=== PATIENT | female | born 1990 | race Caucasian/White ===

== ENCOUNTER → 2023-10-30 10:19 | Outpatient (CLI) | payer OTHER, SELFPAY ==
--- NOTE | 2023-10-30 10:20 | DI.US.S_ITS ---
PROCEDURE: US OB <= 14 WEEKS FETUS INDICATIONS: Dating and viability OUTSIDE/PRIOR DATING DATA: Last menstrual period (LMP): 08/22/2023. LMP-based estimated date of delivery (GARRETT): 05/28/2024. First dating scan (date and location): 10/30/2023. Estimated date of delivery (GARRETT) from first dating scan: 05/27/2024. The calculations are made using the working GARRETT of 05/28/2024. TECHNIQUE: Real-time scanning was performed of the fetus and maternal pelvic organs, with image documentation. COMPARISON: None. FINDINGS: Embryo: Bluebell-rump length 3.1 cm, 10 weeks 0 days Heart rate: 169 Maternal organs: Ovaries not seen. IMPRESSION: Living 1st trimester intrauterine with crown-rump length and heartbeat measuring 10 weeks 0 days. We strive to produce accurate, complete, and clear reports of imaging services. To assist us in improving patient care, this report was composed using standard report templates and voice recognition software. Therefore, it may contain abnormal punctuation, insertions and/or omissions. Occasional wrong-word or sound-alike substitutions may occur. Though we review the report and make efforts to correct it, we do recommend that the report be read carefully in proper context to recognize any text inaccuracies. Dictated by: Marin Tijerina M.D. on 10/30/2023 at 17:02 Approved by: Marin Tijerina M.D. on 10/30/2023 at 17:04
== END ==
LOC: US 10:19
PROVIDERS: Referring Provider Obstetrics & Gynecology; Visit Provider Obstetrics & Gynecology
DX: Z34.81 Encounter for supervision of other normal pregnancy, first trimester (principal); Z3A.10 10 weeks gestation of pregnancy
CPT/HCPCS: 76801

== ENCOUNTER → 2023-11-20 10:55 | Outpatient (CLI) | payer OTHER, SELFPAY ==
[2023-11-20 12:18] LABS: Add Manual Diff / Slide Review NO; Basophils Absolute Auto 0 /uL (0-100); Basophils Percent Auto 0.3 % (0-2); Eosinophils Absolute Auto 400 /uL (0-450); Eosinophils Percent Auto 4.5 % (2-4); Hematocrit 34.7 % (36-46); Hemoglobin 12.1 g/dL (12.0-16.0); Lymphocytes Absolute Auto 2700 /uL (1100-4500); Lymphocytes Percent Auto 33.2 % (25-40); Mean Corpuscular HGB Conc 34.9 % (30-36); Mean Corpuscular Hemoglobin 29.2 PG (26-34); Mean Corpuscular Volume 83.6 fL (80-100); Monocytes Absolute Auto 500 /uL (0-900); Monocytes Percent Auto 6.3 % (3-14); Neutrophils Absolute Auto 4600 /uL (1500-7000); Neutrophils Percent Auto 55.7 % (50-75); Platelet Count 282 X10^3/uL (150-400); Red Blood Cell Count 4.15 X10^6/uL (4.0-5.2); Red Cell Distribution Width 13.3 % (11.6-14.8); White Blood Cell Count 8.2 X10^3/uL (4.5-11.0)
[2023-11-20 12:41] LABS: Natera Collection Specimen Collected
[2023-11-20 12:56] LABS: Alanine Aminotransferase 14 IU/L (<35); Aspartate Aminotransferase 18 IU/L (14-36); Blood Urea Nitrogen 8 mg/dL (7-17); Estimated Glomerular Filt Rate > 60 mL/min (>60); Uric Acid 1.5 mg/dL (2.5-6.2)
[2023-11-20 14:43] LABS: TSH w/ Reflex to FT4 0.98 uIU/mL (0.47-4.68)
[2023-11-20 22:16] LABS: Urine N gonorrhoeae NOT DETECTED
[2023-11-20 22:21] LABS: Urine Chlamydia NOT DETECTED
[2023-11-21 06:14] LABS: RPR Screen Non Reactive (Non Reactive)
[2023-11-21 10:16] LABS: Varicella IgG Antibody 204 index (Immune >165)
[2023-11-21 22:47] LABS: Hepatitis B Surface Antigen NEGATIVE s/c (NEGATIVE); Rubella Antibody IgG 11.2 IU/mL (>15)
[2023-11-21 22:58] LABS: HIV 1 & 2 Ab/Ag 4th Gen Combo NEGATIVE (NEGATIVE); Hep C Virus Ab w/Reflex Quant NEGATIVE s/c (NEGATIVE)
[2023-12-05 08:04] LABS: Misc. to WA State Lab SEE SCANNED REPORTS
== END ==
PROVIDERS: Referring Provider Obstetrics & Gynecology; Visit Provider Obstetrics & Gynecology
DX: O13.9 Gestational [pregnancy-induced] hypertension without significant proteinuria, unspecified trimester (principal); R68.89 Other general symptoms and signs; O99.619 Diseases of the digestive system complicating pregnancy, unspecified trimester; K59.00 Constipation, unspecified; Z3A.12 12 weeks gestation of pregnancy; Z11.3 Encounter for screening for infections with a predominantly sexual mode of transmission
CPT/HCPCS: 36415; 80055; 82565; 84443; 84450; 84460; 84520; 84550; 86787; 86803; 86850; 86900; 86901; 87086; 87389; 87491; 87591

== ENCOUNTER → 2023-12-20 09:22 | Outpatient (CLI) | payer OTHER, SELFPAY | PROVIDERS: Referring Provider Obstetrics & Gynecology; Visit Provider Obstetrics & Gynecology | DX: Z34.82 Encounter for supervision of other normal pregnancy, second trimester (principal); Z3A.16 16 weeks gestation of pregnancy | CPT/HCPCS: 36415; 82105 ==

== ENCOUNTER → 2024-01-07 10:07 | Outpatient (CLI) | payer OTHER, SELFPAY ==
--- NOTE | 2024-01-07 10:08 | DI.US.S_ITS ---
PROCEDURE: US OB >= 14 WEEKS FETUS INDICATIONS: anatomy Scan OUTSIDE/PRIOR DATING DATA: Last menstrual period (LMP): 08/22/2023. LMP-based estimated date of delivery (GARRETT): 05/28/2024. (Working GARRETT) First dating scan (date and location): 10/30/2023. Estimated date of delivery (GARRETT) from first dating scan: 05/27/2024. TECHNIQUE: Real-time scanning was performed of the fetus, with image documentation and biometric measurements. COMPARISON: [facility], OB <= 14 WEEKS FETUS, 10/30/2023, 10:40. FINDINGS: General: A single living intrauterine gestation is present. Presentation: Variable. Placenta: Placental position is posterior , without previa. Amniotic fluid index: 11 cm, normal range is 5-24 cm. Single deepest vertical pocket is 3.8 cm. heart rate: 143 beats per minute. Maternal cervical canal: 3.6 cm long. Normal lower limit is 2.5 cm. biometrics: Biparietal diameter: 4.6 centimeters, 19 weeks and 6 days Head circumference: 17.5 centimeters, 20 weeks Abdominal circumference: 16.4 centimeters, 21 weeks and 3 days Femur length: 3.3 centimeters, 20 weeks and 1 day Clinically estimated gestational age: 19 weeks and 5 days Composite gestational age from present scan: 20 weeks and 3 days Estimated weight and percentile: 374 grams, 94th percentile Anatomic survey: Neuro: Ventricles are non-dilated at less than 10 mm. Cisterna magna is normal at 3-11 mm. Cerebellum is normal in size and morphology. Bilateral choroid plexus cysts are present measuring 4-5 millimeters. Nuchal skin fold: Normal at less than 6 mm between 14-21 weeks gestational age. Face: Nose and lips, facial profile are normal. Spine: No evidence for spina bifida. Heart: 4-chambered heart is present. LVOT is unremarkable. The RVOT is probably within normal limits, but not seen within 1 imaging plane due to positioning. Diaphragm: Diaphragm is intact. Stomach: Left-sided stomach is present. Kidneys: No hydronephrosis. Normal is less than 5 mm in 2nd trimester, less than 7 mm in 3rd trimester. Cord: 3-vessel cord has orthotopic insertion. Bladder: Normal in size. Extremities: All 4 extremities identified. IMPRESSION: The RVOT is not seen within 1 imaging plane due to positioning, but probably within normal limits. Choroid plexus cysts are present, nonspecific in the absence of other significant abnormalities. Consider correlation with maternal risk factors to determine risk for aneuploidy. EFW is at the 94th percentile, at the upper limit of normal. Normal RICARDO. Consider short interval follow-up to reassess the above findings. Dictated by: Ren French M.D. on 01/07/2024 at 12:11 Approved by: Ren French M.D. on 01/07/2024 at 12:17
== END ==
LOC: US 10:08
PROVIDERS: Referring Provider Obstetrics & Gynecology; Visit Provider Obstetrics & Gynecology
DX: Z34.82 Encounter for supervision of other normal pregnancy, second trimester (principal); Z3A.20 20 weeks gestation of pregnancy
CPT/HCPCS: 76811

== ENCOUNTER → 2024-03-06 08:28 | Outpatient (CLI) | payer OTHER, SELFPAY ==
[2024-03-06 10:41] LABS: Hematocrit 35.3 % (36-46); Hemoglobin 12.3 g/dL (12.0-16.0)
[2024-03-06 11:18] LABS: GTT (PREG) 1 Hour PP 50gm Dose 151 mg/dL (76-139)
== END ==
PROVIDERS: Referring Provider Obstetrics & Gynecology; Visit Provider Obstetrics & Gynecology
DX: Z34.82 Encounter for supervision of other normal pregnancy, second trimester (principal); Z3A.26 26 weeks gestation of pregnancy
CPT/HCPCS: 36415; 82950; 85014; 85018

== ENCOUNTER → 2024-03-23 07:50 | Outpatient (CLI) | payer OTHER, SELFPAY ==
[2024-03-23 10:09] LABS: Glucose 1 Hour Gest 152 mg/dL (76-180)
[2024-03-23 10:16] LABS: Glucose Fasting Gestational 79 mg/dL (76-95)
[2024-03-23 11:04] LABS: Glucose Tol Interp,Gestational INTERPRETATION
[2024-03-23 11:07] LABS: Glucose 2 Hour Gest 155 mg/dL (76-155)
[2024-03-23 12:33] LABS: Glucose 3 Hour Gest 119 mg/dL (76-140)
== END ==
PROVIDERS: Referring Provider Obstetrics & Gynecology; Visit Provider Obstetrics & Gynecology
DX: O99.810 Abnormal glucose complicating pregnancy (principal)
CPT/HCPCS: 36415; 82951; 82952

== ENCOUNTER → 2024-04-06 08:52 | Outpatient (CLI) | payer OTHER, SELFPAY ==
--- NOTE | 2024-04-06 08:53 | DI.US.S_ITS ---
PROCEDURE: US OB FOLLOW UP INDICATIONS: GROWTH/BODERLINE GDM/CHOROID PLEXUS CYST OUTSIDE/PRIOR DATING DATA: Last menstrual period (LMP): 08/22/2023. LMP-based estimated date of delivery (GARRETT): 05/28/2024. First dating scan (date and location): 10/30/2023. Estimated date of delivery (GARRETT) from first dating scan: 05/27/2024. The calculations are made using the clinical GARRETT of 05/28/2024. TECHNIQUE: Real-time scanning was performed of the fetus, with image documentation and biometric measurements. Endovaginal scanning: Not performed COMPARISON: [facility], , OB >= 14 WEEKS FETUS, 01/07/2024, 10:16. FINDINGS: General: A single living intrauterine gestation is present. Presentation: Vertex. Placenta: Placental position is fundal , without previa. Amniotic fluid index: 11.4 cm, normal range is 5-24 cm. Single deepest vertical pocket is 3.5 cm. heart rate: 123 beats per minute. Maternal cervical canal: 3.5 cm long. Normal lower limit is 2.5 cm. biometrics: Biparietal diameter: 8.4 cm, 33 weeks 5 days Head circumference: 30.4 cm, 33 weeks 6 days Abdominal circumference: 29.4 cm, 33 weeks 3 days Femur length: 6.2 cm, 32 weeks 1 day Clinically estimated gestational age: 32 weeks 4 days Composite gestational age from present scan: 33 weeks 2 days Estimated weight and percentile: 2121 g, 57% Other: Right ventricular outflow tract is within normal limits. Choroid plexus are not seen which may be secondary to advance age and positioning. IMPRESSION: 1. Single live intrauterine consistent with 33 weeks and 2 days. 2. Right ventricular outflow tract is normal. 3. Choroid plexus cysts are not seen which may be secondary to advanced age and positioning. We strive to produce accurate, complete, and clear reports of imaging services. To assist us in improving patient care, this report was composed using standard report templates and voice recognition software. Therefore, it may contain abnormal punctuation, insertions and/or omissions. Occasional wrong-word or sound-alike substitutions may occur. Though we review the report and make efforts to correct it, we do recommend that the report be read carefully in proper context to recognize any text inaccuracies. Dictated by: Josue Arroyo M.D. on 04/06/2024 at 14:22 Approved by: Josue Arroyo M.D. on 04/06/2024 at 14:25
== END ==
PROVIDERS: Referring Provider Obstetrics & Gynecology; Visit Provider Obstetrics & Gynecology
DX: O35.03X0 Maternal care for (suspected) central nervous system malformation or damage in fetus, choroid plexus cysts, not applicable or unspecified (principal); Z3A.33 33 weeks gestation of pregnancy
CPT/HCPCS: 76816

== ENCOUNTER → 2024-05-05 10:44 | Outpatient (CLI) | payer OTHER, SELFPAY ==
[2024-05-06 10:06] LABS: Strep Grp B PCR POS for Grp B Strep
== END ==
PROVIDERS: Visit Provider Obstetrics & Gynecology
DX: Z36.85 Encounter for antenatal screening for Streptococcus B (principal)
CPT/HCPCS: 87653

== ENCOUNTER 2024-05-12 10:45 | Outpatient (CLI) | payer OTHER, SELFPAY | END 2024-05-12 11:40 | disposition home or self-care (01) | LOC: LABOR 11:01 → OB 05-15 06:14 | PROVIDERS: Referring Provider Obstetrics & Gynecology; Visit Provider Obstetrics & Gynecology | DX: O36.8130 Decreased fetal movements, third trimester, not applicable or unspecified (principal); Z3A.37 37 weeks gestation of pregnancy | CPT/HCPCS: 59025; G0378; G0379 ==

== ENCOUNTER 2024-05-22 05:55 | Inpatient (IN) | payer OTHER, SELFPAY ==
--- NOTE | 2024-05-22 | PATH_ITS ---
[facility] Accession Number: [id number] No. of containers..01 Tissue . 01 Material submitted: . fallopian tube - BILATERAL FALLOPIAN TUBES . 01 Diagnosis: BILATERAL FALLOPIAN TUBES, BILATERAL SALPINGECTOMIES: Fallopian tubes without pathologic abnormalities. Negative for malignancy. MRV 05/26/2024 1500 Local . 01 Electronically signed: . Duke Benton MD, Pathologist NPI- [id number] . 01 Gross description: . Received in formalin with two patient identifiers and bilateral fallopian tubes, are two unoriented, fimbriated fallopian tubes (9.2 x 0.6 cm and 7.0 x 1.0 cm) with violaceous smooth serosa and no cysts identified. The lumens are stellate and unremarkable. Straight Line Press Setter sections to include a portion of longitudinally section fimbriae and cross sections are submitted as follows: . A1: Longer fallopian tube. A2: [place] fallopian tube. ([id number]) /MRV 05/24/2024 1721 Local . 01 Pathologist provided ICD-10: Z3A.39, Z98.891 . 01 CPT . 218424 Specimen Comment: A courtesy copy of this report has been sent to [phone] Performed at: [address] [facility], [place], [place] [id number] MD Gregor Benavidez MD Phone: [phone]
--- NOTE | 2024-05-22 07:21 | P.HPOB_ITS ---
OB HPI Date/Time Date of admission: 05/22/24 Date Patient Seen: 05/22/24 Time Patient Seen: 07:24 History of Present Condition Chief complaint: IUP, 39+ 1 weeks, prior CS, request for sterilizat : 5 Para: 3 Estimated Date of Delivery: 05/28/24 Estimated Gestational Age (weeks): 39+1 Narrative: Kimberly Powell is a 34 year old , admitted now 39+ 1 weeks gestational age for repeat section and bilateral salpingectomy. course is largely been unremarkable with the exception of an abnormal 1 hour GDM screen but a normal 3 hour GTT. Patient requests elective sterilization and understands that such procedure will result in her permanently and irreversibly being unable to bear children without benefit of assisted reproductive technology. She further understands that it is a procedure which may fail (1- 09/999) and that should failure occur, ectopic gestation is highly likely. Dates are solid and milestones appropriate throughout . GBS is positive. Indications Operative indications ( section): previous uterine surgery History of Present care: good care Dating criteria: LMP confirmed by 1st trimester US Ultrasounds: normal 1st trimester US and normal mid trimester US Obstetrical complications: none Medical complications: none Preadmission Labs Blood type: O (+) positive -: Antibody screen: negative, GBS status: positive, HBsAG: negative, HIV: negative and RPR/VDLR: negative -: Chlamydia screen: not detected and Gonorrhea screen: not detected -: Rubella: not immune and Varicella: immune HCT: 35.3 HCAB: negative PAP: Normal Quad screen: Normal (AFP testing negative) Cell-free DNA: Low risk male 1 hr GTT: 151 3 hr GTT: 1 hr (152), 2 hr (155) and 3 hr (119) Fasting blood glucose: 79 Prior (ies) History: CS x 3 Evaluation Evaluation Baseline heart rate: 145 Variability: Moderate (11-25) monitor accelerations: Present Monitor Decelerations: Absent Uterine Contraction Intensity: Mild Category of Tracing: Reactive Status: Category l [facility] Medical History (Updated 05/19/24 @ 10:48 by Breezy Young MD) Allergies (~2017) Substance abuse (~2011) Depression (~2014) Anxiety (~2016) Fractures Chronic back pain (~2014) Carpal tunnel syndrome (~2011) Ankle pain (~2012) Painful menstrual periods (~2001) Abnormal Pap smear of cervix (~2014) Asthma (~2020) Migraine with aura Bipolar disorder (~2021) 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 Alcohol abuse hemorrhage Environmental allergies PTSD (post-traumatic stress disorder) (~2021) Surgical History (Updated 12/18/23 @ 10:51 by Breezy Young MD) Anesthesia H/O right wrist surgery (~2011) H/O dilation and curettage (~2015) H/O skin graft (~2013) [place] teeth extracted (~2011) Previous section Family History (Updated 11/29/23 @ 17:05 by Slime Batista) Mother Depression Bipolar disorder Father Anxiety Hyperthyroidism Sister Thyroid cancer Mental health problem Grandmother Hyperthyroidism H/O thyroidectomy Aunt Prediabetes Grandmother Breast cancer Alcohol abuse Brother ADHD Mental health problem Grandfather Stroke Social History marital status: number of children: 3 household members: spouse and children lives independently: Yes caregiver/support person: Yes housing: house pets and animals: Yes (2 dogs, 2 cats, rat) education level: college (associate's degree) occupational status: unemployed current occupational exposures/hazards: No special cm needs: No travel history: over 6 months ago seatbelt use: always helmet use: No (absolutely not, not receptive to counseling) water heater temp set < 120 deg: No working smoke detector in home: Yes fire extinguisher in home: Yes carbon monox detector in home: Yes firearms in home: No do you feel safe at home: Yes Smoking Status: Former smoker (weaning off using PO pouches) second hand exposure: No (spouse quit vaping when pt switched to PO pouches) alcohol intake: former (~4 glasses wine/week when not ) substance use type: does not use during the past year weight has: remained stable well-balanced diet: daily or most days daily servings fruits/ve-4 caffeine: Yes (coffee) Type(s) of exercise: walking frequency: 3-4 times per week Meds Home Medications and Allergies Home Medications Medication Instructions Recorded Confirmed Type albuterol sulfate 90 mcg/actuation 2 puff inhalation Q6H PRN 10/08/23 05/12/24 History aerosol inhaler cetirizine 10 mg tablet 10 mg PO DAILY 10/08/23 05/12/24 History lidocaine 5 % topical patch 1 patch topical DAILY PRN 10/08/23 05/12/24 History polyethylene glycol 3350 17 gram 17 g PO DAILY #30 ea 11/20/23 05/12/24 Rx oral powder packet (Miralax) Double Electric Breast Pump 1 ea topical .prn #1 ea 02/11/24 05/12/24 Rx Allergies Allergy/AdvReac Type Severity Reaction Status Date / Time morphine AdvReac Intermediate ITCHING Verified 05/05/24 10:40 Opioids - Morphine Analogues AdvReac Intermediate ITCHING Verified 05/05/24 10:40 Milk Containing Products AdvReac Mild Abdominal Verified 05/05/24 10:40 (Dairy) Pain wheat AdvReac Mild Abdominal Verified 05/05/24 10:40 Pain Review of Systems Review of Systems Narrative: Problem-specific ROS positives included in HPI OB Exam Vital signs Blood Pressure: 124/74 Pulse Rate: 75 Respiratory Rate: 18 Temperature: 98.6 F HENMT Head: normal to inspection, normocephalic and atraumatic Eyes General: appearance normal, both eyes and all related structures Resp Effort & Inspection: normal respiratory effort and able to speak in complete sentences Auscultation: clear to auscultation bilaterally Cardio Rate: regular rate Rhythm: regular rhythm Heart Sounds: S1 normal, S2 normal and no murmurs Extremities Lower extremity: Yes normal to inspection GI Inspection: normal to inspection Palpation: Yes soft and Yes no hepatosplenomegaly Uterus Location (Fundal Height): 39 Estimated Weight (lbs): 8 Assessment and Plan Assessment and Plan Assessment and Plan narrative: ASSESSMENT 1. Intrauterine , 39+ 3 weeks gestational age 2. Prior sections 3. Request for sterilization 4. GBS positive status PLAN 1. Admit for repeat section and bilateral salpingectomy 2. See admission orders Time-Based Coding :: [TOTAL MINUTES] spent with patient and on the chart (including review of chart, obtaining history, exam, reviewing outside data, placing orders, documenting exam and treatment plan, and counseling patient) on [DATE].
[2024-05-22 07:35] VITALS: BP 124/74; PULSE 75; RESP 18; TEMP 37
--- NOTE | 2024-05-22 07:36 | PM.PREOP ---
Pre-operative Note Interval Note History & Physical reviewed/Exam performed by Physician: Yes Changes to H&P: No
[2024-05-22 07:37] VITALS: BP 127/74
[2024-05-22 07:40] LABS: Add Manual Diff / Slide Review NO; Basophils Absolute Auto 0 /uL (0-100); Basophils Percent Auto 0.2 % (0-2); Eosinophils Absolute Auto 300 /uL (0-450); Hematocrit 36.2 % (36-46); Hemoglobin 12.6 g/dL (12.0-16.0); Lymphocytes Absolute Auto 2900 /uL (1100-4500); Lymphocytes Percent Auto 33.3 % (25-40); Mean Corpuscular HGB Conc 34.7 % (30-36); Mean Corpuscular Hemoglobin 29.6 PG (26-34); Mean Corpuscular Volume 85.2 fL (80-100); Monocytes Absolute Auto 900 /uL (0-900); Monocytes Percent Auto 9.9 % (3-14); Neutrophils Absolute Auto 4700 /uL (1500-7000); Neutrophils Percent Auto 53.6 % (50-75); Platelet Count 255 X10^3/uL (150-400); Red Blood Cell Count 4.25 X10^6/uL (4.0-5.2); Red Cell Distribution Width 13.7 % (11.6-14.8); White Blood Cell Count 8.7 X10^3/uL (4.5-11.0)
[2024-05-22] MEDS: CITRIC ACID/SODIUM CITRATE 15 ML SOLUTION 30 ML PO (07:40)
[2024-05-22] MEDS: LACTATED RINGERS 1,000 ML 999 ML IV (07:41)
[2024-05-22] MEDS: CEFAZOLIN 2 GM/100 ML PREMIX 100 ML IV (08:00)
[2024-05-22] MEDS: ACETAMINOPHEN IV 1,000 MG/100 ML VIAL 400 MG IV (08:05)
--- NOTE | 2024-05-22 08:32 | SUR.OPER ---
Supine on Padded OR bed, head on pillow, safety belt at thigh, arms secured on padded arm boards at <90 degrees abduction. Bump under right buttock. Legs uncrossed with pillow under knees, gel pad to heels, tape over blanket to lower legs.
[2024-05-22] MEDS: LACTATED RINGERS 1,000 ML 42 ML IV (08:43)
--- NOTE | 2024-05-22 08:49 | SUR.OPER ---
Pre-procedure FHR= 130 BPM. Vacuum extraction delivery kit utilized x1. Viable baby boy born at 0835.
--- NOTE | 2024-05-22 09:56 | P.OP_ITS ---
Operative Date/Time/Diagnoses Date of procedure: 05/22/24 Time of procedure: 08:00 Pre-op diagnosis: Intrauterine gestation, 39+ 1 weeks Prior section Request for sterilization GBS positive status Post-op diagnosis: same Procedure & Clinicians Procedure: Repeat section (low transverse cervical) Bilateral salpingectomy for sterilization Same procedure as scheduled: Yes Indications: Kimberly Powell is a 34 year old , admitted now 39+ 1 weeks gestational age for repeat section and bilateral salpingectomy. course is largely been unremarkable with the exception of an abnormal 1 hour GDM screen but a normal 3 hour GTT. Patient requests elective sterilization and understands that such procedure will result in her permanently and irreversibly being unable to bear children without benefit of assisted reproductive technology. She further understands that it is a procedure which may fail (1-2/ 1000) and that should failure occur, ectopic gestation is highly likely. Dates are solid and milestones appropriate throughout . GBS is positive. Surgeon: Breezy Young Large Sheetfed Press Operator: Lizzeth Clinton Reason for Large Sheetfed Press Operator: Large Sheetfed Press Operator required for the safe, effective, and timely completion of this surgery. Anesthesia Type: Spinal Operative Notes Findings: Viable male BW 3890 g (8 lb 9.2 oz), Apgars 8/9, delivered from the vertex presentation. Extensive abdominal wall and anterior peritoneal-serosal adhesions, otherwise normal gravid anatomy. Closure Type: primary Specimen(s): cord blood Intraoperative meds administered: Ketorolac and Pitocin Applied: Catheter Estimated Blood Loss (mL): 800 Blood products transfused: none Procedure in detail: With her informed written consent, the patient was taken to the operating room and placed in the supine position for a repeat section procedure, for the indication(s) above. The abdomen was prepped and draped in the usual manner for section and a pre-surgical timeout was taken per [facility] OR protocol. Once effective anesthesia was confirmed, the old cicatrix was excised and the incision taken down through the subcutaneous tissues to the deep fascia. The deep fascia was incised transversely, the rectus abdominal eyes bluntly and sharply, and the peritoneal cavity entered without difficulty. The lower uterine segment was visualized and the position/presentation palpated. A transverse incision at or above the vesicouterine reflection was made with Metzenbaum scissors and transverse hysterotomy performed near the midline. Amniotomy revealed clear fluid. The incision was extended bilaterally with digital traction and the was delivered with vacuum assist from the vertex presentation. The infant was vigorous and cord clamping delayed for 60 seconds. The placenta was delivered intact using gentle cord traction and fundal massage.The uterine cavity was then cleared of any clot/debris first with a sloppy wet lap tape followed by a dry lap tape. Ring forceps were then applied to the angles and the midline of the incised JOSE ALFREDO. A primary closure of the uterus was then accomplished with #1 CCGS in a running interlocking stitch followed by a 2nd layer of #1 CCGS in a running interlocking imbricating stitch. Two additional figure of 8 sutures were required to achieve complete he mostasis. Attention was then turned to performance of sterilization procedure. Distal right tube was grasped with a [place] forceps and using a power Seal device the fimbria varicose was coagulated and divided followed by coagulation and division of the entire length of the mesosalpinx. The fallopian tube on the right was then amputated near the cornua with a power Seal device. Left salpingectomy was performed in exactly the same manner. Fallopian tubes were submitted as an aggregate specimen for pathologic evaluation. Once pelvic hemostasis was assured, the bladder flap and anterior peritoneum were closed with a running 2-0 Vicryl suture. The rectus abdominal were brought together with 1. Chromic interrupted and the fascia closed with #1 Vicryl in a running stitch initiated at both angles and tying separately near the midline. The subcutaneous tissues were reapproximated with 2-0 plain catgut suture using inverted interrupted stitches. The skin edges were then brought together with 4-0 Monocryl in a subcuticular closure and the incision was reinforced with 1 Steri-Strips. An appropriate compression dressing was applied and the patient transferred to PACU for recovery and subsequent transfer to the Center for recuperation. Complications: none [place] Baby 1: Gender: Male Presentation: vertex Position: Right Occiput Transverse Placental Delivery Description: Expressed Cord Vessel Description: 3 Vessels score (1 min): 8 score (5 min): 9 weight: 8 lb 9.216 oz Post-operative Condition: stable Disposition: PACU Aftercare: routine postop
[2024-05-22 10:01] VITALS: BP 118/73; PULSE 60; RESP 15; TEMP 36.2; O2SAT 94
[2024-05-22 10:05] VITALS: BP 116/71; PULSE 59; RESP 16; O2SAT 95
[2024-05-22 10:10] VITALS: BP 111/78; PULSE 59; RESP 15; O2SAT 98
[2024-05-22 10:15] VITALS: BP 120/80; PULSE 56; RESP 16; TEMP 36.3; O2SAT 98
[2024-05-22] MEDS: HYDROMORPHONE 1 MG INJ IV ×3 (14:04→23:24)
[2024-05-22] MEDS: ACETAMINOPHEN 325 MG TABLET 650 MG PO ×2 (14:06→20:02)
[2024-05-22] MEDS: KETOROLAC 30 MG/ML VIAL IV ×2 (15:13→21:05)
[2024-05-22] MEDS: LANOLIN OINT 7 GM 1 APPLIC TOP (16:53)
[2024-05-22] MEDS: DOCUSATE 100 MG CAPSULE PO (21:05)
[2024-05-23] MEDS: ACETAMINOPHEN 325 MG TABLET 650 MG PO ×4 (01:47→21:12)
[2024-05-23] MEDS: KETOROLAC 30 MG/ML VIAL IV (02:58)
[2024-05-23 06:46] LABS: Add Manual Diff / Slide Review NO; Basophils Absolute Auto 0 /uL (0-100); Basophils Percent Auto 0.1 % (0-2); Eosinophils Absolute Auto 0 /uL (0-450); Eosinophils Percent Auto 0.2 % (2-4); Hematocrit 32.4 % (36-46); Hemoglobin 11.1 g/dL (12.0-16.0); Lymphocytes Absolute Auto 2500 /uL (1100-4500); Lymphocytes Percent Auto 14.8 % (25-40); Mean Corpuscular HGB Conc 34.1 % (30-36); Mean Corpuscular Hemoglobin 29.4 PG (26-34); Mean Corpuscular Volume 86.3 fL (80-100); Monocytes Absolute Auto 1700 /uL (0-900); Monocytes Percent Auto 9.8 % (3-14); Neutrophils Absolute Auto 12700 /uL (1500-7000); Neutrophils Percent Auto 75.1 % (50-75); Platelet Count 224 X10^3/uL (150-400); Red Blood Cell Count 3.76 X10^6/uL (4.0-5.2); Red Cell Distribution Width 13.7 % (11.6-14.8)
[2024-05-23] MEDS: DOCUSATE 100 MG CAPSULE PO (07:54)
[2024-05-23] MEDS: HYDROMORPHONE 1 MG INJ IV ×4 (07:59→21:45)
[2024-05-23] MEDS: IBUPROFEN 600 MG TABLET PO ×2 (12:00→21:13)
[2024-05-23] MEDS: polyethylene glycoL 3350 17 GM POWD.PACK PO (13:32)
--- NOTE | 2024-05-23 18:25 | P.PNOB_ITS ---
Subjective - OB Subjective Patient comments: no complaints, tolerating diet and flatus present [place] baby status: doing well and nursing well [place] feeding status: exclusively breast feeding Date Patient Seen: 05/23/24 Time Patient Seen: 12:00 Interval history: POD #1 s/p repeat C section. Has voided without the catheter. No N/V. Missed a scheduled dose of pain meds due to sleeping. A little more sore now. Tolerating diet. Ambulating without assistance. Exam Vital Signs (past 8 hours): Oxygen Delivery Method Room Air Oxygen Flow Rate 0 Narrative Exam Narrative: Gen: Sitting up in bed, NAD Fundus: Firm U/-1 Incision: C/D/I with pressure dressing Ext: Trace edema, negative Pavel's Objective Labs 05/23/24 06:28 Labs: Laboratory Results - last 24 hr 05/23/24 06:28 WBC 17.0 H D RBC 3.76 L Hgb 11.1 L Hct 32.4 L MCV 86.3 MCH 29.4 MCHC 34.1 RDW 13.7 Plt Count 224 Neut % (Auto) 75.1 H D Lymph % (Auto) 14.8 L [place] % (Auto) 9.8 Eos % (Auto) 0.2 L Baso % (Auto) 0.1 Neut # (Auto) 46391 H Lymph # (Auto) 2500 [place] # (Auto) 1700 H Eos # (Auto) 0 Baso # (Auto) 0 Assessment & Plan Plan day: 1 plan OB: routine postop care Comments: Assessment: POD#1 s/p Repeat C section, doing well Plan: Discussed with nursing to wake patient for scheduled pain meds Anticipate discharge tomorrow morning Time-Based Coding :: [TOTAL MINUTES] spent with patient and on the chart (including review of chart, obtaining history, exam, reviewing outside data, placing orders, documenting exam and treatment plan, and counseling patient) on [DATE].
[2024-05-24] MEDS: ACETAMINOPHEN 325 MG TABLET 650 MG PO ×2 (03:36→10:37)
[2024-05-24] MEDS: IBUPROFEN 600 MG TABLET PO ×2 (03:36→10:36)
[2024-05-24] MEDS: PRENATAL VIT,CALC/IRON/FOLIC 1 TABLET 1 TAB PO (08:05)
[2024-05-24] MEDS: DOCUSATE 100 MG CAPSULE PO (08:06)
[2024-05-24] MEDS: LORATADINE 10 MG TABLET PO (08:08)
[2024-05-24] MEDS: HYDROMORPHONE 1 MG INJ IV (08:11)
--- NOTE | 2024-05-25 14:35 | P.DS_ITS ---
Discharge Providers Provider Date of admission: 05/22/24 05:55 Discharge Date: 05/24/24 Primary care physician: Collin ODOM Provider Consults: 05/22/24 11:01 Consult to Compliance Testing Analyst Routine Comment: Discharge provider: Elysia Saleem MD Summary Hospital Course Date Patient Seen: 05/24/24 Time Patient Seen: 11:00 Diagnoses: 39-1/7 weeks gestation Previous section x 2 Hospital Course: Patient is a 34-year-old 5 para 4 who presented on May 22, 2024 for a scheduled repeat section. She underwent this procedure without complication. Her postoperative course was unremarkable. On May 24, 2024 she was ambulating independently, pain well controlled, tolerating a diet, voiding without the catheter, no nausea or vomiting, and going well. She was discharged home to follow-up at 1 week for an Aquacel dressing removal Peripartum Data Delivery Method: Section Procedures: Spinal anesthesia with Duramorph Repeat low-transverse section complications: none [place] 1: Gender: Male Disposition of : home Status at Discharge Cognitive/behavioral status at discharge: oriented Functional status at discharge: independent ambulation Overall status at discharge: patient is progressing back to baseline Time Spent with Patient Time attestation: Total time spent providing and/or coordinating discharge services: Time spent: Less than 30 minutes Objective Labs 05/23/24 06:28 Exam Vital Signs (past 8 hours): Oxygen Delivery Method Room Air Oxygen Flow Rate 0 Narrative Exam Narrative: Generally: Patient is sitting up on side of the bed, no acute distress Lungs: Clear to auscultation bilaterally Cardiovascular: Regular rate and rhythm Fundus: Firm at U -1 Incision: Pressure dressing removed. Clean dry and intact with Steri-Strips. Aquacel dressing placed. Extremities: Trace edema, negative Homans Discharge Plan Discharge Plan Patient Disposition: Home Provider Discharge Comment: Call with fever, chills, redness or drainage around incision or bleeding vaginally more than a pad in an hour. Ibuprofen 600mg every 6 hours Tylenol 650mg every 6 hours Miralax as needed Please review the written instructions you received when you were discharged from the hospital. Your follow-up appointment is scheduled for 1 week after your surgery we look forward to seeing then. If however in the meanwhile you have any issues, concerns, or questions, please contact the office either by phone at [phone], or via the patient portal. Discharge orders & Medications Prescriptions: New hydromorphone [Dilaudid] 2 mg tablet 2 mg PO Q4-6H PRN (Reason: pain) Qty: 20 0RF Continued polyethylene glycol 3350 [Miralax] 17 gram powder in packet 17 g PO DAILY Qty: 30 12RF Double Electric Breast Pump 1 ea topical .prn Qty: 1 0RF Rx Instructions: Pump and supplies cetirizine 10 mg tablet 10 mg PO DAILY lidocaine 5 % adhesive patch,medicated 1 patch topical DAILY PRN albuterol sulfate 90 mcg/actuation HFA aerosol inhaler 2 puff inhalation Q6H PRN Follow up/Referrals: Breezy Young MD [Physician] - Discharge Health Status Multidrug resistant organism: No MDRO Diet/Activity/Treatments Diet: Diet as Tolerated Activity: As tolerated Other treatments: Ommi-rxm-[id number] Tylenol and/or ibuprofen may be used for additional pain relief. Blgg-jmk-[id number] stool softeners and/or MiraLax may be used as needed for constipation. Skin/Wound/Dressing Care Report to your healthcare provider any signs of infection, such as:: chills, fever, increased pain, unusual drainage and unusual redness Dressing: Dressing will be removed at the time of your one-week visit Visit Report/Discharge Packet Instructions: DI for , DI for and Nipple Soreness, DI for Prescription Opioid Use Discharge Data Primary Care Provider: ProviderCollin
== END 2024-05-24 11:44 | disposition home or self-care (01) | DRG 785 ==
PROVIDERS: Admitting Provider Obstetrics & Gynecology; Referring Provider Obstetrics & Gynecology; Visit Provider Obstetrics & Gynecology
PROC: 0UT70ZZ Resection of Bilateral Fallopian Tubes, Open Approach (ICD-10-PCS; CPT 59514; principal; 2024-05-22 07:45)
DX: O34.211 Maternal care for low transverse scar from previous cesarean delivery (principal); Z3A.39 39 weeks gestation of pregnancy; Z37.0 Single live birth; Z30.2 Encounter for sterilization; O99.824 Streptococcus B carrier state complicating childbirth
CPT/HCPCS: 36415; 58611; 59050; 59510; 59514; 85025; 86850; 86900; 86901; A9270; J0134; J0690; J1100; J1170; J1885; J2250; J2405

== ENCOUNTER → 2024-06-26 07:52 | Outpatient (CLI) | payer OTHER, SELFPAY ==
--- NOTE | 2024-06-26 07:52 | DI.US.S_ITS ---
PROCEDURE: US ABDOMEN LIMITED INDICATIONS: rule out hematoma, seroma, or abscess TECHNIQUE: Real-time scanning was performed of the abdominal and retroperitoneal organs, with image documentation. COMPARISON: None. FINDINGS: Limited examination of right abdominal wall at the site of Caesarean section shows ill-defined complex fluid collection deep to the incision site with minimal internal vascularity and measures up to 4.4 x 5.6 x 2.4 cm in size. IMPRESSION: Finding likely represent organizing hematoma versus seroma in right anterior abdominal wall soft tissue deep to the section site. Overall appearance is not typical for abscess collection. Continued clinical and sonographic follow-up is recommended. Dictated by: Hemanth Foreman M.D. on 06/26/2024 at 8:34 Approved by: Hemanth Foreman M.D. on 06/26/2024 at 8:36
== END ==
PROVIDERS: Referring Provider Obstetrics & Gynecology; Visit Provider Obstetrics & Gynecology
DX: R10.30 Lower abdominal pain, unspecified (principal); Z98.891 History of uterine scar from previous surgery
CPT/HCPCS: 76705

== ENCOUNTER 2024-06-29 12:56 | Day surgery (SDC) | payer OTHER, SELFPAY ==
[2024-06-29 08:08] VITALS: BMI 30.2
[2024-06-29 14:30] VITALS: BMI 28.5
[2024-06-29 14:42] VITALS: BP 112/75; PULSE 79; RESP 12; TEMP 36.8; O2SAT 94
--- NOTE | 2024-06-29 15:48 | SUR.OPER ---
Supine on padded OR bed, head on pillow, arms secured on padded arm boards at <90 degrees abduction, legs uncrossed, safety belt at thigh, tape over blanket over lower legs.
--- NOTE | 2024-06-29 15:51 | PM.PREOP ---
Pre-operative Note COVID-19 COVID-19 status: Not tested Interval Note History & Physical reviewed/Exam performed by Physician: Yes Changes to H&P: No
[2024-06-29] MEDS: BUPIVACAINE 0.25% (PF) 30 ML, EPINEPHrine 0.15 MG INJ (16:19)
[2024-06-29] MEDS: CEFAZOLIN VIAL 2 GM in SODIUM CHLORIDE 0.9% 100 ML IV (16:23)
[2024-06-29 17:02] VITALS: BP 110/80; PULSE 77; RESP 14; TEMP 36.2; O2SAT 97
[2024-06-29 17:06] VITALS: BP 124/82; PULSE 69; RESP 10; O2SAT 98
[2024-06-29] MEDS: HYDROMORPHONE 1 MG INJ IV ×2 (17:10→17:19)
[2024-06-29] MEDS: HYDROMORPHONE 2 MG TABLET PO (17:10)
[2024-06-29 17:12] VITALS: BP 122/84; PULSE 64; RESP 10; O2SAT 98
--- NOTE | 2024-06-29 17:22 | PM.GYNOP.1 ---
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 She has also noticed some swelling but marked tenderness on the right side and abdominal wall ultrasound performed earlier today shows: FINDINGS: Limited examination of right abdominal wall at the site of Caesarean section shows ill-defined complex fluid collection deep to the incision site with minimal internal vascularity and measures up to 4.4 x 5.6 x 2.4 cm in size. IMPRESSION: Finding likely represent organizing hematoma versus seroma in right anterior abdominal wall soft tissue deep to the section site. Overall appearance is not typical for abscess collection. Continued clinical and sonographic follow-up is recommended. Findings of ultrasound and physical findings discussed with the patient. Wound will need exploration to resolve her symptoms as quickly as possible. The option of opening the wound in the office under local anesthesia was discussed but patient isn't comfortable with that option therefore will schedule wound exploration in the OR as soon as it can be scheduled. Case request submitted to her neurosurgery physician with plans to perform the wound exploration and evacuation of wound hematoma on 06/29/2024. Surgeon: Breezy Young Anesthesia Type: General Operative Notes Findings: Upon initial entry to the Pfannenstiel incision, digital palpation failed to identify any area of hematoma. Instead a firm ridge of tissue underlying the right half of the incision was encountered and appeared to be intense fibrosis and inflammatory changes sparked by fatty necrosis underlying that portion of the incision. The fascia was opened on the right side of the incision and the subfascial plane was explored digitally. There were no abnormalities noted and no hematoma or seroma was present. Closure Type: primary Specimen(s): none Estimated blood loss (mL): 25 Blood products transfused: none Procedure in detail: With the patient under satisfactory general anesthesia in the dorsal supine position, the abdomen was prepped and draped in the usual manner for laparotomy. A pre-surgical safety time-out was then taken in accordance with [facility] OR protocols. The wound was infiltrated on the right side with 0.5% Marcaine with epinephrine and initially 2-3 cm of the incision were opened with a 11. Blade. Aerobic and anaerobic cultures were taken. Digital exploration the subcutaneous tissues failed to demonstrate any hematoma/seroma but the abnormality which was palpable preop was instead identified as inflammatory tissues and fibrosis associated with what was probably an area of fatty necrosis under the incision. The wound was then extended to the full length of the right half of the Pfannenstiel so as to fully expose the abnormal area. The area was excised sharply and bluntly in fragments so that at the end of the procedure, there were no additional areas of this type of tissue present. This area exactly manages the area of pain the patient has been experiencing as well as the sonographic abnormality seen in the abdominal wall. The wound was irrigated and carefully inspected for bleeding. There was no bleeding and the fascial defect was closed with 1. Vicryl in a running stitch. The subcutaneous tissues were reapproximated with 2-0 Vicryl in a 2 layered running stitch. Skin edges were brought together with 3-0 nylon interrupted and a NARENDRA dressing was applied. Procedure was then terminated and the patient awakened from anesthesia. She was then transferred to the PACU for a period of observation and recovery after having tolerated the procedure well. Complications: none Post-operative Condition: stable Disposition: PACU Plan for aftercare: Follow-up 07/03/2024 or PRN
[2024-06-29] MEDS: KETOROLAC 30 MG/ML VIAL IV (17:25)
[2024-06-29 17:27] VITALS: BP 121/77; PULSE 61; RESP 14; O2SAT 98
[2024-06-29 17:42] VITALS: BP 121/88; PULSE 78; RESP 11; TEMP 36.2; O2SAT 98
--- NOTE | 2024-06-29 17:55 | SUR.PHASEII ---
Ophelia MARINO administered patient 2mg oral dilaudid prior to dc to assist with pain control
== END 2024-06-29 17:50 | disposition home or self-care (01) ==
PROVIDERS: Referring Provider Obstetrics & Gynecology; Visit Provider Obstetrics & Gynecology
PROC: (CPT 12036; principal; 2024-06-29 14:30)
DX: L76.82 Other postprocedural complications of skin and subcutaneous tissue (principal)
CPT/HCPCS: 12036; 87070; 87075; 87205; J0171; J0690; J1100; J1171; J1885; J2250; J2405; J2704; J3010

== ENCOUNTER → 2024-10-20 10:50 | Outpatient (CLI) | payer OTHER, SELFPAY ==
[2024-10-20 12:25] LABS: Follicle Stimulating Hormone 4.37 mIU/mL; HCG Quantitative /Beta subunit < 2.39 mIU/mL; Luteinizing Hormone 6.71 mIU/mL
[2024-10-20 12:51] LABS: Prolactin 40.2 ng/mL (3.0-18.6)
== END ==
PROVIDERS: Obstetrics & Gynecology; Referring Provider Family Medicine; Visit Provider Family Medicine
DX: N91.2 Amenorrhea, unspecified (principal)
CPT/HCPCS: 36415; 83001; 83002; 84146; 84702

== ENCOUNTER → 2025-01-22 08:30 | Outpatient (CLI) | payer OTHER, SELFPAY ==
[2025-01-22 10:01] LABS: Prolactin 40.4 ng/mL (3.0-18.6)
[2025-01-22 10:13] LABS: TSH w/ Reflex to FT4 1.72 uIU/mL (0.47-4.68)
== END ==
PROVIDERS: Referring Provider Obstetrics & Gynecology; Visit Provider Obstetrics & Gynecology
DX: N91.2 Amenorrhea, unspecified (principal); R68.89 Other general symptoms and signs
CPT/HCPCS: 36415; 84146; 84443